=== PATIENT | male | born 1980 | race Hispanic/Latino ===

== ENCOUNTER 2021-09-12 18:46 | Emergency (ER) | payer SELFPAY ==
[~2021-09-12] VITALS: Ht 172.7 cm; Wt 79.4 kg
[2021-09-12] MEDS ORDERED: FLUORESCEIN SOD(OPTH) 1 MG STRP OP ONE (19:45)
[2021-09-12] MEDS ORDERED: TETRACAINE HCL 0.5% OPTH SOLN 4 ML BTL OP ONE (19:45)
[2021-09-12] MEDS ORDERED: TOBRAMYCIN 0.3% OPTH OINT 3.5 GM TUBE OP ONE (20:15)
== END 2021-09-12 20:15 | disposition home or self-care (01) ==
LOC: ER 19:50
DX: T15.02XA Foreign body in cornea, left eye, initial encounter (principal); S00.252A Superficial foreign body of left eyelid and periocular area, initial encounter; X58.XXXA Exposure to other specified factors, initial encounter; Y92.008 Other place in unspecified non-institutional (private) residence as the place of occurrence of the external cause
CPT/HCPCS: 99283